=== PATIENT | male | born 1960 | race Caucasian/White ===

== ENCOUNTER 2024-07-28 08:00 | Outpatient (AMB) | payer OTHER, SELFPAY ==
[2024-07-28 08:04] VITALS: BP 122/80; TEMP 36.4
--- NOTE | 2024-07-28 08:04 | AM.OFFWIN_ITS ---
Intake Vital Signs 07/28/24 08:04 Weight 174 lb BP 122/80 Blood Pressure Location Rt brachial Position Sitting Temp 97.6 F Temp Source Oral Intake Visit Reasons: [employer]-sore throat, running nose, cough,headachesd Intake Note: Patient here for cough, runny nose, sore throat and headache that has been present for a couple of weeks. Patient Tobacco Use Status: Never used Tobacco Allergies No Known Allergies Allergy (Verified 07/28/24 08:10) Medication List - Last Reconciled 07/28/24 by MICHAEL Stacy No Known Home Meds Do you need a note to return to daycare/school/sports/work: No HPI HPI Comments History of Present Illness Details History The patient is a 64 year old male presenting with cough and sore throat. - The patient has been experiencing coug h and sore throat for several weeks, which have worsened in the past week and a half. His symptoms have been intermittent. - There is an absence of fever and chill s; however, he did experience subs tantial night sweats recently. - A persistent runny nose has been ongoi ng for three to four weeks, although it has decreased in intensity lately. - A memorable shift from a productive co ugh to a non-productive, dry cough occurred about three weeks ago; the cough is currently characterized by irritation without much phlegm. - The patient notices no sinus pain or p ressure, neither upon palpating nor bending over. - No medicines have been taken for his s ymptoms. - His spouse is managing a prolonged cou gh, and he has concerns due to recent health issues within his family, including strep throat and pneumonia. Physical Exam General: Awake, alert. No apparent distress Eyes: Sclera and conjunctiva clear bilaterally Nose: Nares thick white mucous, turbinates pale and edematous, some swelling and paleness noted Ears: Tympanic membranes intact and clear bilaterally Throat: Moist mucosa membrane, pharynx within normal limits + PND Cardiovascular: Regular rate and rhythm Respiratory: Clear to auscultation bilaterally Results - Strep Test: Negative Discussion Notes I discussed the likely diagnosis of an upper respiratory tract infection which seems to be viral in nature, based on the patient's symptoms and history. We deliberated on the use of Augmentin as an antibiotic to cover bacterial coverage due to his prolonged symptoms and impending travel plans. The option of using a nasal steroid like Flonase was also deliberated to address nasal swelling and postnasal drip symptoms. The patient was advised on the [id number] availability of Flonase and the possibility of insurance coverage. We emphasized the need for this intervention especially as he will be traveling soon, to ensure symptom management during his upcoming vacation. Consent for treatment was obtained verbally, and it was explained that Augmentin will also cover potential concerns like strep due to family history. We discussed the importance of completing the antibiotic course and the availability of cough medication if needed. The patient was advised on possible insurance coverage for the nasal spray and informed him to obtain it [id number] if not covered. Assessment and Plan 1. Acute Upper Respiratory Tract Infecti on: The patient presents with signs and symptoms consistent with an upper respiratory tract infection, most likely of viral etiology given the negative strep test results. We have decided to start Augmentin as a precautionary measure to provide bacterial coverage due to prolonged symptoms and upcoming travel. 2. Postnasal Drip: Postnasal drip contri buting to throat irritation was suspected in this case. Flonase has been recommended to help alleviate the nasal congestion and decrease postnasal drip symptoms. The medication is available [id number], and the patient is advised to confirm coverage with his insurance. 3. Sore Throat: The sore throat is likel y to resolve with management of the postnasal drip and nasal swelling. Limited use of cough medication was advised if necessary during travel. Patient Instructions - Take Augmentin 1 tablet twice a day fo r 7 days with food. - Use Flonase nasal spray as per package instructions to help with nasal c ongestion. - Obtain prescription medications from [facility] as discussed. - Keep hydrated and monitor symptoms; se ek care if symptoms worsen or new symptoms develop. - Enjoy your upcoming vacation and remem nicki preventive measures like hand hygiene. Consent Patient was informed and verbally consented to the use of an ambient scribe for clinic note documentation during this visit. [facility] Social History Patient Tobacco Use Status: Never used Tobacco Physical Exam Vital Signs: Last Vital Signs Temp 97.6 F 07/28/24 08:04 BP 122/80 07/28/24 08:04 Results AMB Rapid Strep AMB Rapid Strep Negative Last Edit by SONG Peterson on 07/28/24 08:17 Assessment & Plan Assessment & Plan (1) Acute sinusitis: Code(s): J01.90 - Acute sinusitis, unspecified Qualifiers: Recurrence: non-recurrent Sinusitis location: pansinusitis Qualified Code(s): J01.40 - Acute pansinusitis, unspecified Plan . Orders: Orders AMB Rapid Strep Screen Today Z13.9 - Encounter for screening, unspecified Medications: New benzonatate 100 mg PO TID 10 days PRN 30 caps 1RF cough fluticasone propionate 50 mcg/actuation administer into each nostril 1 spray intranasal BID 16 grams 0RF amoxicillin-pot clavulanate 875-125 mg 1 tab PO BID 7 days 14 tabs 0RF Coding Level of Care Code Est Pt Level 3 (12618) Diagnoses Acute non-recurrent pansinusitis J01.40 Recurrence: non-recurrent Sinusitis location: pansinusitis
== END 2024-07-28 08:24 | disposition home or self-care (01) ==
PROVIDERS: Visit Provider Nurse Practitioner Family
DX: Z13.9 Encounter for screening, unspecified (principal); J01.40 Acute pansinusitis, unspecified

== ENCOUNTER → 2024-07-28 08:00 | Outpatient (BNVA) | payer OTHER, SELFPAY | PROVIDERS: Visit Provider Nurse Practitioner Family | DX: J01.40 Acute pansinusitis, unspecified (principal) | CPT/HCPCS: 87880 ==

== ENCOUNTER 2025-03-18 15:33 | Outpatient (AMB) | payer OTHER, SELFPAY ==
--- NOTE | 2025-03-18 15:40 | A.OFFPC_ITS ---
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 Accompanied by: Self / Same As Patient Allergies No Known Allergies Allergy (Verified 03/18/25 15:44) Medication List - Last Reconciled 03/18/25 by OC Gunderson No Known Home Meds Tobacco use date assessed: 03/18/25 Fall risk assessment: No Falls in past year Last assessed Fall Risk: 03/18/25 Dental Screening Dental Screen Date: 03/18/25 Did you have a dental visit in the last 12 months?: Yes Did you have a dental problem in the last 6 months where you did not have access to dental care?: No Was dental information given to patient?: Patient has dentist HPI HPI Comments History of Present Illness Details Pt is here for a PE (NEW PT). reports last colon screen was around age 49. Reports not seeing a provider in many years. Very active pt (mountain biking and skiing). Does report ED, will check a T levels, though erect enough for penetration PFSH Medical History (Updated 03/18/25 @ 16:36 by VAN Gunderson-LEXI) Erectile dysfunction PVCs (premature ventricular contractions) Social History Patient Tobacco Use Status: Never used Tobacco Questionnaire PHQ-9 Over the last 2 weeks, how often have you been bothered by any of the following problems? 1. Little interest or pleasure in doing things: not at all 2. Feeling down, depressed, or hopeless: not at all 3. Trouble falling or staying asleep, or sleeping too much: several days 4. Feeling tired or having little energy: not at all 5. Poor appetite or overeating: not at all 6. Feeling bad about yourself - or that you are a failure or have let yourself or your family down: not at all 7. Trouble concentrating on things, such as reading the newspaper or watching television: not at all 8. Moving or speaking so slowly that other people could have noticed. Or the opposite - being so fidgety or restless that you have been moving around a lot more than usual: not at all 9. Thoughts that you would be better off or of hurting yourself in some way: not at all Total score: 1 Depression Screening Interpretation: Negative Depression Screening Done: Yes [id number] - PHQ-9 Billing: Yes Source: Developed by Drs. Jaime Fleming, Charla Greene, Felix Colunga and colleagues, with an educational salty from [employer]. Thrive Questionnaire I am a: Patient What is your living situation today?: I have a steady place to live Within the past 12 months, did the food you bought not last and you didn't have the money to get more?: Never true Within the past 12 months, did you worry whether your food would run out before you got money to buy more?: Never true Do you have trouble paying for medicines?: No Do you have trouble getting transportation to medical appointments?: No Do you have trouble paying your heating and electricity bill?: No Do you have trouble taking care of your child, family member or friend?: No Do you have trouble with day-to-day activities such as bathing, preparing meals, shopping, managing finances, etc.?: No Are you currently unemployed and looking for a job?: No Are you interested in more education?: No Please select the resources that you would like help with: None Currently or been in a relationship where the following occur: No concerns reported THRIVE Score: 0 AUDIT C Alcohol Use Questionnaire (AUDIT-C) 1. How often do you have a drink containing alcohol?: 2-4 times a month 2. How many drinks containing alcohol do you have on a typical day when you are drinking?: 1 or 2 3. How often do you have six or more drinks on one occasion?: Never Total Score: 2 Score Reviewed/Action Taken: Yes ASHLEY-7 AMB Questionnaire ASHLEY-7 Feeling nervous, anxious, or on edge: 0 = Not at all Not being able to stop or control worryin = Not at all Worrying too much about different things: 0 = Not at all Trouble relaxin = Not at all Being so restless that it is hard to sit still: 0 = Not at all Becoming easily annoyed or irritable: 0 = Not at all Feeling afraid as if something awful might happen: 0 = Not at all Total ASHLEY-7 score (0-4 normal; 5-9 mild; 10-14 moderate; 15-21 severe): 0 Source: Developed by Drs. Jaime Fleming, Charla Greene, Felix Colunga and colleagues, with an educational salty from [employer]. ASHLEY-7 Assessment Billing ASHLEY-7 Assessment Tool: ASHLEY-7 Assessment 79362 Review of Systems Const Denies chills and Denies fever(s) Eyes Denies blurry vision ENT Denies vertigo, Denies dizziness and Denies sore throat Card Denies chest pain at rest, Denies chest pain with activity, Denies diaphoresis, Denies dyspnea and Denies dyspnea on exertion Resp Denies cough, Denies dyspnea, Denies dyspnea on exertion and Denies wheezing GI Denies abdominal pain, Denies melena, Denies hematochezia, Denies constipation, Denies diarrhea and Denies loose stools Details: reports getting up several times a night to void Denies hematuria Musc Denies numbness and Denies tingling Skin/Breast Denies lesions Neuro Denies vertigo, Denies dizziness, Denies numbness and Denies tingling Psych Denies anxiety, Denies depression, Denies homicidal ideation, Denies suicidal ideation and Denies other (substance abuse) Aller/Immun Denies wheezing Physical exam (Primary Care) Vital Signs: Last Vital Signs Pulse 63 03/18/25 15:44 BP 120/80 03/18/25 15:44 Pulse Ox 100 03/18/25 15:44 Oxygen Delivery Method Room Air 03/18/25 15:44 BMI result Body Mass Index 26.1 Tobacco/Smoking Status: Tobacco use Status Tobacco use date assessed 03/18/25 03/18/25 15:48 Patient Tobacco Use Status Never used Tobacco 03/18/25 15:42 PHQ-9: PHQ-9 Score PHQ-9: Total score 1 03/18/25 16:26 Depression Screening Interpretation: Negative Currently or been in a relationship where the following occur: No concerns reported Const General: cooperative Nutritional Appearance: well nourished Orientation/consciousness: patient oriented x3 HENMT Head: Yes normal to inspection, Yes normocephalic and Yes atraumatic Ears: TM normal on the right and TM normal on the left Eyes General: appearance normal, both eyes and all related structures Alignment and Position: alignment normal and position normal Neck Neck: Yes normal visual inspection, Yes no lymphadenopathy and Yes supple Resp Effort & Inspection: normal respiratory effort Auscultation: clear to auscultation bilaterally Cardio Rate: regular rate Rhythm: regular rhythm Heart sounds: S1 normal heart sound present, S2 normal heart sound present and no murmurs GI Palpation (GI): Soft to palpation and nontender Auscultation: normal bowel sounds Male General Exam: Yes normal external exam Penis: normal penis Scrotum: scrotum normal, testes descended bilaterally and no inguinal hernias Testes: no testicular mass Skin Rashes: no rashes Neuro General: patient oriented x3, moves all extremities, no focal motor deficits and deep tendon reflexes 2+ bilaterally Romberg Test: Negative Extrem Right lower extremity: no edema Left lower extremity: no edema Psych Affect: normal affect Attitude: cooperative Thought process: Normal thought process present Immunizations Boostrix Tdap 2.5 Lf unit-8 mcg-5 Lf/0.5 mL intramuscular syringe Performing Provider: OC Gunderson Performing Location: [facility] Administered by: Yesi Nelson MA on 03/18/25 16:47 Dose Route Admin Location Dispensed Lot Number Expiration Date [facility] 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 Deltoid 0.5 mL [id number] 10/09/27 [id number] T3 [employer] Total Dispensed Waste 0.5 mL 0 % VIS Given Date VIS Provided VIS Publication Date 03/18/25 Single Vaccine 20 Eligibility Eligibility Date Funding Source Not [facility] Eligible 03/18/25 Private Coding Level of Care Code New Pt Prev Care >65yr (16218) Diagnoses Physical exam Z00.00 Screening for prostate cancer Z12.5 Screening for colon cancer Z12.11 Erectile dysfunction N52.9 Additional Codes ASHLEY-7 Assessment Billing - ASHLEY-7 Assessment Tool: ASHLEY-7 Assessment 98036 ([id number]) PHQ-9 - 68045 - PHQ-9 Billing: Yes ([id number]) Assessment & Plan Assessment & Plan (1) Physical exam: Code(s): Z00.00 - Encounter for general adult medical examination without abnormal findings Category: Medical (2) Screening for prostate cancer: Code(s): Z12.5 - Encounter for screening for malignant neoplasm of prostate Category: Medical (3) Screening for colon cancer: Code(s): Z12.11 - Encounter for screening for malignant neoplasm of colon Category: Medical (4) Erectile dysfunction: Code(s): N52.9 - Male erectile dysfunction, unspecified Category: Medical Plan . Orders: Orders Comprehensive [place]. Panel Fast Today Z00.00 - Encounter for general adult medical examination without abnormal findings TSH reflex Free T4 Today Z00.00 - Encounter for general adult medical examination without abnormal findings UA CC w/rflx Micro + Cult Today Z00.00 - Encounter for general adult medical examination without abnormal findings Lipid Panel Today Z00.00 - Encounter for general adult medical examination w ithout abnormal findings Prostate Specific Antigen Scr Today Z12.5 - Encounter for screening for malignant neoplasm of prostate Testosterone, Total Today N52.9 - Male erectile dysfunction, unspecified Complete Blood Count Auto Diff Today Z00.00 - Encounter for general adult medical examination without abnormal findings TDaP Immunization Today Z23 - Encounter for immunization Referrals Gastroenterology Referral Z12.11 - Encounter for screening for malignant neoplasm of colon
[2025-03-18 15:44] VITALS: BP 120/80; PULSE 63; O2SAT 100; BMI 26.1
== END 2025-03-18 16:51 | disposition home or self-care (01) ==
LOC: HO.HMCC 15:33
PROVIDERS: Visit Provider Nurse Practitioner Family
DX: Z00.00 Encounter for general adult medical examination without abnormal findings (principal); Z12.5 Encounter for screening for malignant neoplasm of prostate; Z12.11 Encounter for screening for malignant neoplasm of colon; N52.9 Male erectile dysfunction, unspecified; Z23 Encounter for immunization

== ENCOUNTER → 2025-03-18 15:33 | Outpatient (BNVA) | payer OTHER, SELFPAY | PROVIDERS: Visit Provider Nurse Practitioner Family | DX: Z00.00 Encounter for general adult medical examination without abnormal findings (principal); Z23 Encounter for immunization; Z12.5 Encounter for screening for malignant neoplasm of prostate; Z12.11 Encounter for screening for malignant neoplasm of colon; N52.9 Male erectile dysfunction, unspecified | CPT/HCPCS: 90471; 90715; 96127 ==

== ENCOUNTER 2025-03-24 07:42 | Outpatient (REF) | payer OTHER, SELFPAY ==
[2025-03-24 10:49] LABS: Appearance Urine Cloudy; Glucose Urine UA Negative (Negative); MANUAL DIFF FLAG NO; PH 5.5 (5.0-9.0); Specific Gravity - Urine 1.020 (1.005-1.025)
[2025-03-24 11:11] LABS: Hematocrit 41.2 % (42.0-52.0); Hemoglobin 14.2 g/dl (14.0-18.0); Imm Gran Abs Auto 0.01 X10*3/uL (0.00-0.03); Imm Gran Pct Auto 0.4 % (0.0-0.4); Lymphocytes Absolute Auto 1.2 X10*3/uL (1.2-4.9); Mean Corpuscular HGB Conc 34.5 g/dl (31.0-36.0); Mean Corpuscular Hemoglobin 33.6 pg (27.0-33.0); Mean Corpuscular Volume 97.4 fL (80.0-98.0); NRBC Abs Auto 0.000 X10*3/uL (0.0-0.012); NRBC Pct Auto 0.0 /100WBC (0.0-0.2); Platelet Count 176 X10*3/uL (160-400); Red Blood Count 4.23 X10*6/uL (4.60-5.80); White Blood Count 2.8 X10*3/uL (4.8-10.8)
[2025-03-24 12:32] LABS: Alanine Aminotransferase 18 U/L (0-40); Albumin Level 4.1 g/dL (3.5-5.0); Alkaline Phosphatase 59 U/L (39-117); Anion Gap 10 (12-20); Aspartate Amino Transferase 27 U/L (5-37); Blood Urea Nitrogen 22 mg/dL (9-16); Calcium 9.2 mg/dL (8.4-10.2); Carbon Dioxide 28 mmol/L (22-29); Chloride 108 mmol/L (96-108); Cholesterol 182 mg/dL (<200); Estimated Glomerular Filt Rate > 60; HDL Cholesterol 64 mg/dL (>40); Potassium 4.5 mmol/L (3.3-5.1); Sodium 141 mmol/L (135-145); Total Protein 6.3 g/dL (6.5-8.0); Triglycerides 73 mg/dL (<150)
== END 2025-03-24 07:43 | disposition home or self-care (01) ==
LOC: HO.HMGCLDS 07:42
PROVIDERS: PCP Nurse Practitioner Family; Visit Provider Nurse Practitioner Family
DX: Z00.00 Encounter for general adult medical examination without abnormal findings (principal); Z12.5 Encounter for screening for malignant neoplasm of prostate; N52.9 Male erectile dysfunction, unspecified
CPT/HCPCS: 36415; 80053; 80061; 81003; 84153; 84403; 84443; 85025